=== PATIENT | female | born 1975 | race Caucasian/White ===

== ENCOUNTER 2020-05-23 07:51 | Outpatient (CLI) | payer BC, MEDICARE, SELFPAY ==
--- NOTE | 2020-05-23 08:08 | MM_ITS ---
WS: [id number] BILATERAL SCREENING DIGITAL MAMMOGRAM WITH CAD HISTORY: SCREENING COMPARISON: 12/06/2018 and 05/18/2017 Bilateral CC and MLO views submitted. Computer aided detection analyzed. Breast composition: The breasts are almost entirely fatty. No suspicious masses, microcalcifications or architectural distortion. MM/[place] [id number] IMPRESSION: BI-RADS: 1-Negative FOLLOW UP: 1 Year Follow-up
== END 2020-05-23 07:52 | disposition home or self-care (01) ==
LOC: RADSHAW 07:56
PROVIDERS: PCP Internal Medicine; Visit Provider Internal Medicine
DX: Z12.31 Encounter for screening mammogram for malignant neoplasm of breast (principal)
CPT/HCPCS: 77067

== ENCOUNTER 2020-05-24 10:53 | Outpatient (CLI) | payer BC, MEDICARE, SELFPAY ==
--- NOTE | 2020-05-24 11:00 | US_ITS ---
WS: [id number] ULTRASOUND PELVIS TECHNIQUE: Transvaginal. CLINICAL INFORMATION: POSTMENOPAUSAL BLEEDIN : No. COMPARISON: None. FINDINGS: Uterus Orientation: Anteverted. Size: 8.3 x 3.7 x 4.8 cm Masses: None. Cervix: Incidental nabothian cysts. Endometrium: Normal. Endometrium thickness: 0.24 cm. Adnexa: Neither ovary is visualized. No adnexal masses. Free fluid: None. Other findings: None. US/US transvaginal [id number] IMPRESSION: 1. Uterus and endometrium are normal in appearance. Endometrium measures 2.4 m m. 2. No free fluid in the cul-de-sac. 3. Neither ovary is visualized. No adnexal masses.
== END 2020-05-24 10:54 | disposition home or self-care (01) ==
LOC: US 10:53
PROVIDERS: PCP Internal Medicine; Visit Provider Internal Medicine
DX: N95.0 Postmenopausal bleeding (principal)
CPT/HCPCS: 76830

== ENCOUNTER → 2020-11-08 10:45 | Outpatient (BNVA) | payer BC, MEDICARE, SELFPAY | PROVIDERS: PCP Internal Medicine; Visit Provider Obstetrics & Gynecology | DX: Z12.4 Encounter for screening for malignant neoplasm of cervix (principal); N95.1 Menopausal and female climacteric states | CPT/HCPCS: 88175 ==

== ENCOUNTER 2020-11-27 08:16 | Outpatient (CLI) | payer BC, MEDICARE, SELFPAY ==
--- NOTE | 2020-11-27 08:27 | US_ITS ---
WS: [id number] ULTRASOUND SOFT TISSUES LEFT hip. HISTORY: SOFT TISSUE MASS COMPARISON: None available. TECHNIQUE: 2-D and color Doppler imaging is submitted. Ultrasound is directed by the patient in the area of concern over the lateral LEFT hip. There is no d iscernible mass. No fluid collections or bursitis identified. No area of increased vascularity. Lipom a may be isoechoic to the adjacent soft tissue and not visualized. US/US soft tissue/extremity [id number] IMPRESSION: No soft tissue abnormality in the area of interest.
== END 2020-11-27 08:17 | disposition home or self-care (01) ==
LOC: RAD 08:21
PROVIDERS: PCP Internal Medicine; Visit Provider Internal Medicine
DX: M79.9 Soft tissue disorder, unspecified (principal)
CPT/HCPCS: 76882

== ENCOUNTER 2021-07-09 09:40 | Outpatient (CLI) | payer BC, MEDICARE, SELFPAY ==
--- NOTE | 2021-07-09 09:47 | MM_ITS ---
WS: [id number] BILATERAL DIGITAL SCREENING MAMMOGRAPHY WITH CAD CLINICAL INFORMATION: SCREENING HISTORY: Screening mammogram. No current complaints. COMPARISON: November 23, 2019 TECHNIQUE: Bilateral CC and MLO views. FINDINGS: Scattered fibroglandular densities bilaterally. No suspicious focal mass, asymmetry, calcifications, or architectural distortion. No evidence of malignancy. A few tiny punctate calcifications. MM/[id number] IMPRESSION: BI-RADS: 2-Benign FOLLOW UP: 1 Year Follow-up Recommend return to annual screening mammography.
== END 2021-07-09 09:41 | disposition home or self-care (01) ==
PROVIDERS: PCP Internal Medicine; Visit Provider Internal Medicine
DX: Z12.31 Encounter for screening mammogram for malignant neoplasm of breast (principal)
CPT/HCPCS: 77067

== ENCOUNTER → 2021-10-12 15:16 | Outpatient (BNVA) | payer BC, MEDICARE, SELFPAY | PROVIDERS: PCP Internal Medicine; Visit Provider Nurse Practitioner | DX: R39.9 Unspecified symptoms and signs involving the genitourinary system (principal) | CPT/HCPCS: 81000 ==

== ENCOUNTER → 2021-11-22 13:51 | Outpatient (BNVA) | payer OTHER, MEDICARE, SELFPAY | PROVIDERS: PCP Internal Medicine; Visit Provider Nurse Practitioner | DX: R39.9 Unspecified symptoms and signs involving the genitourinary system (principal); N39.0 Urinary tract infection, site not specified | CPT/HCPCS: 81000; 87086 ==

== ENCOUNTER → 2022-01-05 13:24 | Outpatient (BNVA) | payer OTHER, MEDICARE, SELFPAY | PROVIDERS: PCP Internal Medicine; Visit Provider Podiatrist Foot & Ankle Surgery | DX: M79.671 Pain in right foot (principal) | CPT/HCPCS: 73630 ==

== ENCOUNTER 2022-06-03 11:20 | Outpatient (CLI) | payer OTHER, MEDICARE, SELFPAY ==
--- NOTE | 2022-06-03 11:35 | MR_ITS ---
WS: [id number] MRI LUMBAR SPINE NONCONTRAST TECHNIQUE: Sagittal T1, T2 and STIR imaging. Axial T1 and T2 imaging. CLINICAL INFORMATION: LUMBOSACRAL SPINE DEGENERATIVE DISC DZ W/RADICULOPATHY COMPARISON: None. FINDINGS: Mild lumbar curve. No acute compression. No high-grade spinal canal stenosis. Disc bulging worse at L 3-L4. Suspected prior hemilaminectomy L4-L5. L1-L2: Mild facet arthropathy. Spinal canal and foramen are patent. L2-L3: Tiny annular fissure. Spinal canal and foramen are patent. Mild facet arthropathy. L3-L4: Mild disc osteophytic ridging with a shallow central disc protrusion. Moderate central canal s tenosis. Impingement traversing LEFT greater than RIGHT L4 nerve roots. Moderate facet arthropathy. M ild LEFT and no significant RIGHT foraminal narrowing. L4-L5: Clumping of the cauda equina nerve roots compatible with arachnoiditis. Mild RIGHT greater daysi n LEFT bony foraminal narrowing. Slight narrowing of the RIGHT subarticular recess. Moderate facet ar thropathy. L5-S1: Disc osteophyte complex with endplate ridging. Slight contact of the far exiting RIGHT L5 nerv e root. LEFT foramen is patent. Slight encroachment traversing RIGHT S1 nerve root. Visualized pelvic bony structures: Normal. Paravertebral soft tissues: Normal. LEFT renal cyst measures 8 mm MR/MR lumbar spine wo con* [id number] IMPRESSION: 1. Mild lumbar curve. No acute compression. Suspected prior hemilaminectomy L4 -L5. 2. Disc osteophyte complex L3-L4 with moderate central canal stenosis. Impinge ment traversing LEFT greater than RIGHT L4 nerve roots. 3. LEFT foraminal protrusion with mild LEFT L3-L4 foraminal narrowing. 4. Clumping of the cauda equina nerve rootlets at L4-L5 compatible with arachn oiditis. Moderate L4-L5 bony foraminal narrowing with slight narrowing of the w rist particularly recess. 5. Disc bulge L5-S1 with osteophytic ridging. Slight encroachment traversing R IGHT S1 nerve root. 6. RIGHT eccentric disc osteophyte complex slightly contacts the far exiting R IGHT L5 nerve root laterally. 7. Tiny annular fissure L2-L3 spinal canal foramen are patent at this level.
== END 2022-06-03 11:21 | disposition home or self-care (01) ==
PROVIDERS: PCP Internal Medicine; Visit Provider Internal Medicine
DX: M51.17 Intervertebral disc disorders with radiculopathy, lumbosacral region (principal); M25.78 Osteophyte, vertebrae; M51.26 Other intervertebral disc displacement, lumbar region; M51.27 Other intervertebral disc displacement, lumbosacral region
CPT/HCPCS: 72148

== ENCOUNTER 2023-07-12 11:06 | Outpatient (CLI) | payer OTHER, MEDICARE, SELFPAY ==
--- NOTE | 2023-07-12 11:19 | MM_ITS ---
WS: [id number] BILATERAL 3D TOMOSYNTHESIS DIGITAL SCREENING MAMMOGRAPHY WITH CAD CLINICAL INFORMATION: SCREENING HISTORY: Screening mammogram. No current complaints. COMPARISON: 2020 TECHNIQUE: Bilateral CC and MLO views. FINDINGS: Scattered fibroglandular densities bilaterally. No suspicious focal mass, asymmetry, calcifications, or architectural distortion. No evidence of malignancy. A few tiny incidental punctate calcifications . IMPRESSION: MM/[place] [id number] BI-RADS: 2-Benign FOLLOW UP: 1 Year Follow-up Recommend return to annual screening mammography.
== END 2023-07-12 11:07 | disposition home or self-care (01) ==
LOC: RAD 11:11
PROVIDERS: PCP Internal Medicine; Visit Provider Internal Medicine
DX: Z12.31 Encounter for screening mammogram for malignant neoplasm of breast (principal)
CPT/HCPCS: 77063; 77067

== ENCOUNTER 2024-05-21 12:03 | Emergency (ER) | payer OTHER, MEDICARE, SELFPAY ==
[2024-05-21 12:04] VITALS: BP 129/77; PULSE 56; RESP 14; TEMP 36.4; O2SAT 99; BMI 36.9
--- NOTE | 2024-05-21 13:09 | CTR_ITS ---
PROCEDURE INFORMATION: Exam: CT Abdomen And Pelvis With Contrast Exam date and time: 05/21/2024 2:41 PM Age: 48 years old Clinical indication: Abdominal pain; Localized; Right upper quadrant (ruq); TECHNIQUE: Imaging protocol: Computed tomography of the abdomen and pelvis with contrast. Radiation optimization: All CT scans at this facility use at least one of these dose optimization techniques: automated exposure control; mA and/or kV adjustment per patient size (includes targeted exams where dose is matched to clinical indication); or iterative reconstruction. Contrast material: OMNI 350; Contrast volume: 100 ml; Contrast route: INTRAVENOUS (IV); COMPARISON: US transvaginal [id number] 05/24/2020 11:16 AM RADIATION DOSE METRICS: Total DLP (mGy-cm): 1062.41 FINDINGS: Liver: Normal. No mass. Gallbladder and biliary ducts: The gallbladder has been removed. Pancreas: Normal. No ductal dilation. Spleen: Normal. No splenomegaly. Adrenal glands: 2.4 cm nonspecific left adrenal gland lesion. Kidneys and ureters: There is a 13 mm cyst with benign features in the left kidney. Follow-up is not necessary. Stomach and bowel: There are gastric postoperative changes. Appendix: A normal appendix is identified. Intraperitoneal space: Unremarkable. No free air. No significant fluid collection. Vasculature: Unremarkable. No abdominal aortic aneurysm. Lymph nodes: Unremarkable. No enlarged lymph nodes. Urinary bladder: Unremarkable as visualized. Reproductive: Unremarkable as visualized. Bones/joints: There are degenerative changes in the visualized spine. Chronic defects are present through the L5 pars interarticularis. A broad-based disc osteophyte complex at the L3-L4 level appears to moderately narrow the canal. Multilevel lumbar posterior osteophytes contribute to bilateral neural foramina narrowing. Soft tissues: Tiny fat containing umbilical hernia. There is skin thickening about the umbilicus. CT/CT abdomen pelvis w con* [id number] IMPRESSION: There is a 2.4 cm nonspecific left adrenal gland lesion.Non-emergent adrenal CT is recommended. (Reference: Star) COMMENTS: Consistent with the [employer]'s Incidental Findings Committee white paper (J Am Rachael Radiol 2018): Any incidental renal lesion less than 1 cm or classified as too small to characterize, or any incidental cystic renal lesion characterized as simple-appearing, is likely benign. No follow-up imaging is recommended for these lesions per consensus recommendations based on imaging criteria. REFERENCES: Star SANTILLAN, et al. Management of Incidental Adrenal Masses: A White Paper of the ACR Incidental Findings Committee. J Am Rachael Radiol. 2017;14(8):5252-3771.
--- NOTE | 2024-05-21 13:11 | W.ED.ABDPA2 ---
HPI - Abdominal Pain General: Chief Complaint: Abdominal Pain Stated Complaint: Right side stomach pain Time Seen by Provider: 05/21/24 12:30 Source: patient Mode of arrival: ambulatory Limitations: no limitations History of Present Illness: 48-year-old female states she has been having right-sided abdominal pain since . States pains been intermittent in nature and sharp rates pain a 4 out of 10 currently denies any vomiting denies any diarrhea she has a history of a gastric bypass years ago she had no complications. Associated Symptoms: Denies chills, diarrhea, dysuria, fever(s), nausea and vomiting Review of Systems Const: Denies: fever(s), chills, body aches or change in appetite ENMT: Denies: throat pain or dental pain Card: Denies: chest pain Resp: Denies: dyspnea GI: Reports: abdominal pain; Denies: nausea, vomiting or diarrhea : Denies: dysuria Musc: Denies: neck pain or back pain Skin/Breast: Denies: rash Neuro: Denies: headache(s) PFSH ED PFSH: Medical History Obesity Gastroesophageal reflux disease Hyperlipidemia Type 2 diabetes mellitus Hypertension Surgical History History of shoulder surgery History of hand surgery History of section, low transverse (08/01/06) [place] [facility] [place] History of back surgery (~1996) Performed in [place], [place] History of cholecystectomy (~1995) Performed at [facility] in [place], [place] History of tonsillectomy and adenoidectomy (~1984) Age 10 Family History Mother Diabetes Hypercholesteremia Heart disease Hypertension Father Diabetes Social History Smoking and tobacco/nicotine status: never used tobacco/nicotine Alcohol intake: never Substance/Drug Use: never Physical Exam Const: COMMON NORMALS: no acute distress, patient oriented x3 and healthy appearing HENMT: COMMON NORMALS: normocephalic and atraumatic HEAD & SCALP: normocephalic and atraumatic Neck/C-Spine: COMMON NORMALS: full ROM and supple Chest: COMMONS NORMALS: normal inspection of the chest Resp: COMMON NORMALS: normal respiratory effort Cardio: COMMON NORMALS: regular rate, regular rhythm and No murmurs present (Cardio) RATE: regular rate RHYTHM: regular rhythm GI: COMMON NORMALS: Normal to inspection, nondistended, normoactive bowel sounds present, Soft to palpation and no masses PALPATION: Yes Soft to palpation OTHER: right sided tenderness Extremity: COMMON NORMALS: normal to inspection and full ROM Neuro: COMMON NORMALS: patient oriented x3, moves all extremities and no focal motor deficits Psych: COMMON NORMALS: mental status grossly normal, Normal thought process present and cooperative THOUGHT PROCESS: Normal thought process present Skin: COMMON NORMALS: no rashes or lesions noted and no wounds GENERAL SKIN EXAM: no rashes or lesions noted Course Vital Signs: Vital signs: Vital Signs Temperature 97.5 F L 05/21/24 12:04 Pulse Rate 65 05/21/24 14:12 Respiratory Rate 14 05/21/24 12:04 Blood Pressure 132/78 05/21/24 14:12 Pulse Oximetry 97 05/21/24 14:12 Oxygen Delivery Me thod Room Air 05/21/24 14:12 MDM - Abdominal Pain Medical Decision Making Patient presents with abdominal pain blood work imaging here shows nothing acute. I did inform her of the adrenal gland lesion and she is to follow-up with her PCP if further imaging she feels improved here she stable for discharge return if worsening. Medical Records I reviewed the patient's medical records. Lab Data I reviewed the patient's lab results. 05/21/24 13:09 05/21/24 13:09 Labs/Radiology: Radiology Impressions Abdomen/Pelvis CT 05/21/24 13:09 IMPRESSION: There is a 2.4 cm nonspecific left adrenal gland lesion.Non-emergent adrenal CT is recommended. (Reference: Star) COMMENTS: Consistent with the [employer]'s Incidental Findings Committee white paper (J Am Rachael Radiol 2018): Any incidental renal lesion less than 1 cm or classified as too small to characterize, or any incidental cystic renal lesion characterized as simple-appearing, is likely benign. No follow-up imaging is recommended for these lesions per consensus recommendations based on imaging criteria. REFERENCES: Star SANTILLAN, et al. Management of Incidental Adrenal Masses: A White Paper of the ACR Incidental Findings Committee. J Am Rachael Radiol. 2017;14(8):8536-5912. Laboratory Results WBC 5.92 10^3/uL (3.29-11.43) 05/21/24 13:09 RBC 4.71 10^6/uL (3.85-5.65) 05/21/24 13:09 Hgb 13.80 g/dL (11.27-16.99) 05/21/24 13:09 Hct 42.5 % (36-47) 05/21/24 13:09 MCV 90.2 fl (85-98) 05/21/24 13:09 MCH 29.3 pg (27-33) 05/21/24 13:09 MCHC 32.5 g/dL (30-55) 05/21/24 13:09 RDW 12.0 % (12.1-15.1) L 05/21/24 13:09 Plt Count 310 10^3/cmm (157-399) 05/21/24 13:09 MPV 8.5 fL (7.4-10.4) 05/21/24 13:09 Neut % (Auto) 61.6 % 05/21/24 13:09 Lymph % (Auto) 29.2 % 05/21/24 13:09 [place] % (Auto) 5.1 % 05/21/24 13:09 Eos % (Auto) 2.9 % 05/21/24 13:09 Baso % (Auto) 1.0 % 05/21/24 13:09 Neut # (Auto) 3.65 10^3/uL (1.8-7.7) 05/21/24 13:09 Lymph # (Auto) 1.7 10^3/uL (0.8-4.8) 05/21/24 13:09 [place] # (Auto) 0.3 10^3/uL (0.2-0.9) 05/21/24 13:09 Eos # (Auto) 0.2 10^3/uL (0.0-0.8) 05/21/24 13:09 Baso # (Auto) 0.1 10^3/uL (0.0-0.1) 05/21/24 13:09 Nucleated RBC % (auto) 0 % 05/21/24 13:09 Nucleated RBCs # 0.0 /100WBC 05/21/24 13:09 Sodium 142 mmol/L (136-145) 05/21/24 13:09 Potassium 4.0 mmol/L (3.5-5.1) 05/21/24 13:09 Chloride 103 mmol/L (98-107) 05/21/24 13:09 Carbon Dioxide 26 mmol/L (22-29) 05/21/24 13:09 Anion Gap 17.0 (5-19) 05/21/24 13:09 BUN 9 mg/dL (6-20) 05/21/24 13:09 Creatinine 0.5 mg/dL (0.5-0.9) 05/21/24 13:09 GFR Calculation 130.6 mL/min (90-130) H 05/21/24 13:09 Glucose 109 mg/dL (65-115) 05/21/24 13:09 Calculated Osmolality 293 mOsm/kg (285-295) 05/21/24 13:09 Calcium 9.1 mg/dL (8.5-10.5) 05/21/24 13:09 Total Bilirubin 0.4 mg/dL (0.15-1.2) 05/21/24 13:09 AST 27 U/L (0-32) 05/21/24 13:09 ALT 35 U/L (0-33) H 05/21/24 13:09 Alkaline Phosphatase 147 U/L (35-105) H 05/21/24 13:09 Total Protein 7.4 g/dL (6.6-8.7) 05/21/24 13:09 Albumin 4.3 g/dL (3.5-5.2) 05/21/24 13:09 Globulin 3.1 g/dL (1.3-4.6) 05/21/24 13:09 Lipase 23 U/L (13-60) 05/21/24 13:09 Urine Color Yellow (Yellow) 05/21/24 13:19 Urine Appearance Clear (CLEAR) 05/21/24 13:19 Urine pH 7 (5-7) 05/21/24 13:19 Ur Specific [place] 1.000 (1.005-1.030) L 05/21/24 13:19 Urine Protein Neg (Negative) 05/21/24 13:19 Urine Glucose (UA) Norm (Normal) 05/21/24 13:19 Urine Ketones Negative (Negative) 05/21/24 13:19 Urine Blood Neg (Negative) 05/21/24 13:19 Urine Nitrate Negative (Negative) 05/21/24 13:19 Urine Bilirubin Neg (Negative) 05/21/24 13:19 Urine Urobilinogen Norm mg/dL (Negative) 05/21/24 13:19 Ur Leukocyte Esterase Negative (Negative) 05/21/24 13:19 All radiology interpretation(s) finalized by discharge Discharge Plan Discharge Patient Disposition: Home Clinical Impression: Abdominal pain Qualifiers: Abdominal location: generalized Qualified Code(s): R10.84 - Generalized abdominal pain Condition: Stable Prescriptions: No Action aspirin [Tomás Chewable Aspirin] 81 mg tablet,chewable 81 mg PO DAILY Lantus U-100 Insulin 100 unit/mL solution 20 unit SUBCUT DAILY estradiol 0.5 mg tablet 0.5 mg PO DAILY 30 Days Qty: 30 12RF progesterone micronized 100 mg capsule 100 mg PO DAILY 30 Days Qty: 30 12RF insulin asp prt-insulin aspart [Novolog Mix 70-30 U-100 Insuln] 100 unit/mL (70-30) solution 32 unit SUBCUT TID metformin 1,000 mg tablet 1,000 mg PO BID lovastatin 10 mg tablet 10 mg PO DAILY Trulicity 0.75 mg/0.5 mL pen injector SUBCUT .WEEKLY TUMARIC capsule PO DAILY losartan 50 mg tablet 50 mg PO DAILY multivitamin Tablet 1 tab PO DAILY zinc 50 mg tablet 50 mg PO DAILY cholecalciferol (vitamin D3) 10 mcg (400 unit) capsule 10 mcg PO DAILY methocarbamol 750 mg tablet 750 mg PO Q8H PRN (Reason: muscle spasm) Qty: 30 0RF tizanidine 4 mg capsule 4 mg PO TID PRN (Reason: muscle spasticity) Qty: 10 0RF meloxicam 15 mg tablet See Rx Instructions .ROUTE .COMPLEX Qty: 30 2RF Hold Instructions: Patient No Longer Taking Dose Instruction: TAKE 1 TABLET BY MOUTH EVERY DAY FOR 30 DAYS Rx Instructions: TAKE 1 TABLET BY MOUTH EVERY DAY FOR 30 DAYS Discharge Orders: Discharge ED (Routine); Ordered 05/21/24 Ordered By: Karsten Garcia Referrals: Jane Flores MD [Primary Care Provider] - 4-7 days Discharge Diet: Advance as tolerated Discharge Activity: Resume usual activity Patient Instructions: Abdominal Pain (ED) Coding Level of Care Code 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
[2024-05-21 13:15] LABS: Basophils # 0.1 10^3/uL (0.0-0.1); Eosinophils # 0.2 10^3/uL (0.0-0.8); Eosinophils % 2.9 %; Hematocrit 42.5 % (36-47); Lymphocytes # 1.7 10^3/uL (0.8-4.8); Lymphocytes % 29.2 %; Mean Corpuscular HGB Conc 32.5 g/dL (30-55); Mean Corpuscular Hemoglobin 29.3 pg (27-33); Mean Corpuscular Volume 90.2 fl (85-98); Mean Platelet Volume 8.5 fL (7.4-10.4); Monocytes # 0.3 10^3/uL (0.2-0.9); Monocytes % 5.1 %; Neutrophils # 3.65 10^3/uL (1.8-7.7); Neutrophils % 61.6 %; Nucleated Red Blood Cells % 0 %; Platelet Count 310 10^3/cmm (157-399); Red Blood Count 4.71 10^6/uL (3.85-5.65); White Blood Count 5.92 10^3/uL (3.29-11.43)
[2024-05-21 13:36] LABS: Alanine Aminotransferase 35 U/L (0-33); Albumin Level 4.3 g/dL (3.5-5.2); Alkaline Phosphatase 147 U/L (35-105); Aspartate Amino Transferase 27 U/L (0-32); Blood Urea Nitrogen 9 mg/dL (6-20); Calcium 9.1 mg/dL (8.5-10.5); Carbon Dioxide 26 mmol/L (22-29); Chloride 103 mmol/L (98-107); Creatinine Clr Calc Pharmacy 163.8996; Globulin 3.1 g/dL (1.3-4.6); Glomerular Filtration Rate 130.6 mL/min (90-130); Glucose 109 mg/dL (65-115); Lipase 23 U/L (13-60); Osmolality Calculated 293 mOsm/kg (285-295); Sodium 142 mmol/L (136-145); Total Bilirubin 0.4 mg/dL (0.15-1.2); Total Protein 7.4 g/dL (6.6-8.7)
[2024-05-21] MEDS: methylPREDNISolone sod succ 40 mg/mL INJ IVP (14:11)
[2024-05-21] MEDS: diphenhydrAMINE 50 mg/mL SDV 1mL IVP (14:11)
[2024-05-21 14:12] VITALS: BP 132/78; PULSE 65; O2SAT 97
[2024-05-21 14:30] VITALS: BP 137/79; PULSE 67; O2SAT 97
[2024-05-21] MEDS: iohexol 350 mg/mL 500 mL Btl (per mL) IV (14:45)
[2024-05-21 15:10] LABS: Add Urine Microscopic? NO; Charge for UA Resulting for Rev
[2024-05-21 15:30] VITALS: BP 102/68; PULSE 63; O2SAT 93
[2024-05-21 15:37] LABS: Bilirubin Urine Neg (Negative); Blood Urine Neg (Negative); Glucose Urine UA Norm (Normal); Ketones Urine Negative (Negative); Leukocyte Esterase Urine Negative (Negative); Nitrate Urine Negative (Negative); Protein Urine Neg (Negative); Urine Appearance Clear (CLEAR); Urine Color Yellow (Yellow); Urobilinogen Urine Norm (Negative); pH Urine 7 (5-7)
== END 2024-05-21 15:58 | disposition home or self-care (01) ==
PROVIDERS: Emergency Provider Emergency Medicine; PCP Internal Medicine
DX: R10.84 Generalized abdominal pain (principal); Z79.82 Long term (current) use of aspirin; Z79.4 Long term (current) use of insulin; Z79.84 Long term (current) use of oral hypoglycemic drugs; Z79.85 Long-term (current) use of injectable non-insulin antidiabetic drugs; E78.5 Hyperlipidemia, unspecified; E11.9 Type 2 diabetes mellitus without complications; I10 Essential (primary) hypertension
CPT/HCPCS: 36415; 74177; 80053; 81003; 83690; 85025; 96374; 96375; 99285; J1200; J2919; Q9967

== ENCOUNTER 2024-09-25 14:38 | Outpatient (CLI) | payer OTHER, MEDICARE, SELFPAY ==
--- NOTE | 2024-09-25 14:43 | XR_ITS ---
WS: [id number] XR shoulder LT min 2V* [id number] REASON FOR EXAM: PAIN IN LEFT SHOULDER FINDINGS: Clavicle, scapula, and humerus are intact without fracture. The acromioclavicular joint is intact with mild narrowing and subchondral sclerosis. The appearance o f the AC joint is unchanged compared to 05/29/2019. Glenohumeral joint is intact. The joint space is not well demonstrated. There is mild osteophytosis o f the humeral head. The glenohumeral joint is unchanged compared to 05/29/2019. No significant subchondral sclerosis or cystic change in the greater biceps tuberosity. XR/XR shoulder LT min 2V* [id number] IMPRESSION: No acute abnormality. Mild osteoarthritis of the acromioclavicular joint. Osteoarthritis of the glenohumeral joint uncertain severity.
== END 2024-09-25 14:39 | disposition home or self-care (01) ==
LOC: RAD 14:41
PROVIDERS: PCP Internal Medicine; Visit Provider Internal Medicine
DX: M19.012 Primary osteoarthritis, left shoulder (principal)
CPT/HCPCS: 73030

== ENCOUNTER 2024-09-29 09:27 | Outpatient (CLI) | payer OTHER, MEDICARE, SELFPAY ==
--- NOTE | 2024-09-29 09:34 | MM_ITS ---
WS: [id number] BILATERAL SCREENING DIGITAL TOMOSYNTHESIS MAMMOGRAM WITH CAD HISTORY: SCREENING COMPARISON: 07/12/2023, 07/09/2021 Bilateral CC and MLO views with tomosynthesis and synthetic mammography submitted. Computer aided det ection analyzed. Breast composition: There are scattered areas of fibroglandular density. No suspicious masses, microc alcifications or architectural distortion. Scattered benign punctate calcifications in each breast. MM/MM scr BI tomosynthesis [id number] IMPRESSION: BI-RADS: 2 - Benign. FOLLOW UP: 1 Year Follow-up
== END 2024-09-29 09:28 | disposition home or self-care (01) ==
LOC: RAD 09:28
PROVIDERS: PCP Internal Medicine; Visit Provider Internal Medicine
DX: Z12.31 Encounter for screening mammogram for malignant neoplasm of breast (principal); R92.323 Mammographic fibroglandular density, bilateral breasts; R92.1 Mammographic calcification found on diagnostic imaging of breast
CPT/HCPCS: 77063; 77067

== ENCOUNTER 2025-06-12 18:02 | Emergency (ER) | payer OTHER, MEDICARE, SELFPAY ==
--- OUTSIDE RECORDS SUMMARY | 2025-03-14 23:59 | XMS_ITS | Continuity of Care Document ---
Author Name [facility] Address [address] [place] [address] Organization [facility] Care Team Providers Care Shells Inspector Name Role Phone [facility] Unavailable Unavailable Problems Problem Status Onset Date Problem Type Date of Resolution Comments Source Body mass index 40+ - severely obese (finding) Resolved Condition Added by Discern Rule PROB_ADD_BMI Severe obesity (disorder) Active Condition Added by Discern Rule PROB_ADD_BMI Morbid obesity (disorder) Diagnosis Body mass index 40+ - severely obese (finding) Diagnosis Type II diabetes mellitus without complication (disorder) Diagnosis Essential hypertension (disorder) Diagnosis Long-term current use of insulin (situation) Diagnosis Long-term current use of oral hypoglycemic medication Diagnosis Long-term current use of aspirin (situation) Diagnosis Joint pain (finding) Diagnosis Gastroesophageal reflux disease without esophagitis (disorder) Diagnosis Hyperlipidemia (disorder) Diagnosis Long-term current use of drug therapy (situation) Diagnosis Chronic gastritis (disorder) Diagnosis Gastric polyp (disorder) Diagnosis Acquired absence of organ Diagnosis Long-term current use of drug therapy (situation) Diagnosis Drug allergy (disorder) Diagnosis Allergy to penicillin (disorder) Diagnosis Allergy to substance (disorder) Diagnosis Not up-to-date with immunization (finding) Diagnosis Allergies, Adverse Reactions, Alerts Substance Category Reaction Severity Reaction type Status Date Reported Comments Source penicillin Assertion Moderate Drug allergy Active [facility] Latex Assertion Anaphylaxis Severe Allergy to substance Active [facility] iodine Assertion Anaphylaxis Severe Drug allergy Active [facility] Encounters Location Location Details Encounter Type Encounter Number Reason For Visit Attending Provider ADM Date DC Date Status Source [facility] Non-Admit [id number] Cesar Tom 03/14 12:25 :27 03/15 04:59 :59 [facility] Procedures Procedure Code Date Perfomer Comments Source [facility] Social History Social History Date Source No data available for this section 03/15/2025 [facility]
--- OUTSIDE RECORDS SUMMARY | 2025-06-12 18:05 | XMS_ITS | Encounter Summary ---
Author Organization [facility] Address [address] [place] [address] Care Team Providers Care Mask Former Name Role Phone Jane Flores MD Primary Care Provider [phone] Encounter Details Date Type Department Care Team (Latest Contact Info) Description 09/14/2003 Outpatient [facility] [address] [place] [address] Clay Bowers MD NO ADDRESS ON FILE Antepartum diabetes mellitus (Primary Dx); FAMILY HERED DIS-ANTEPART Social History Tobacco Use Types Packs/Day Years Used Date Smoking Tobacco: Never Assessed Comments Unknown Sex and Gender Information Value Date Recorded Sex Assigned at Not on file 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
--- OUTSIDE RECORDS SUMMARY | 2025-06-12 18:05 | XMS_ITS | Clinical Summary ---
Author Organization [employer] Address [address] [facility] Attn: [place] [address] Care Team Providers Care Weekday Babysitter Name Role Phone Jane Flores MD Primary Care Provider +1- [phone] Allergies Active Allergy Reactions Criticality Noted Date Comments Iodine Shortness of Breath/Wheezing High 018 Latex Shortness of Breath/Wheezing High 018 Penicillins Unknown 08/20/2018 Medications insulin degludec (TRESIBA) 200 unit/mL pen syringe Inject 35 Units by subcutaneous injection daily at bedtime. 8 Active lisinopriL (PRINIVIL) 10 mg tablet Take 10 mg by mouth daily. 8 Active insulin aspart (NOVOLOG FLEXPEN U-100 INSULIN SUBCUT) Inject 35 Units by subcutaneous injection 3-4 times a day . 8 Active omeprazole (PriLOSEC) 40 mg Capsule, Delayed Release(E.C.) Take 40 mg by mouth 2 times daily. 8 Active lovastatin (MEVACOR) 10 mg tablet Take 10 mg by mouth daily with supper. 8 Active metFORMIN (GLUCOPHAGE) 1,000 mg tablet Take 1,000 mg by mouth 2 times daily with meals. 8 Active aspirin (ECOTRIN EC) 81 mg Tablet, Delayed Release (E.C.) Take 81 mg by mouth daily. 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 Gender Identity Not on file Sexual Orientation Not on file Last Filed Vital Signs Vital Sign Reading Time Taken Comments Blood Pressure 142/74 08/20/2018 8:32 PM CDT Pulse - - Temperature 36.3 C (97.4 F) 08/20/2018 8:32 PM CDT Respiratory Rate 20 08/20/2018 8:32 PM CDT Oxygen Saturation - - Inhaled Oxygen Concentration - - Weight 140.3 kg (309 lb 3.2 oz) 08/20/2018 6:50 PM CDT Height 167.6 cm (5' 6 ) 08/20/2018 6:50 PM CDT Body Mass Index 49.91 08/20/2018 6:50 PM CDT Plan of Treatment Health Maintenance Due Date Last Done Comments DTAP/TDAP/TD VACCINES (1 - Tdap) 1992 HEPATITIS B VACCINES (1 of 3 - 19+ 3-dose series) 07/27 HPV/Cotest (21-29) 1994 CERVICAL CANCER SCREENING 2003 HPV/Cotest (30-65) 2003 PAP SMEAR 2003 BREAST CANCER SCREENING 2013 COLORECTAL SCREENING 2018 Colorectal Cancer Screening 2018 FIT-DNA Q 3 years 2018 FIT/FOBT Q 1 year 2018 Flex Sig/CT Colonography Q 5 years 2018 ZOSTER VACCINE (1 of 2) 2023 INFLUENZA VACCINE (#1) 2025 Care Teams Weekday Babysitter Relationship Specialty Start Date End Date Jane Flores MD [address] [place] [address] PCP - General Internal Medicine 08/20/18
--- OUTSIDE RECORDS SUMMARY | 2025-06-12 18:05 | XMS_ITS | Clinical Summary ---
Author Organization [facility] Address [address] [facility] [address] [place] [address] Phone Care Team Providers Care Central Office Technician Name Role Phone Jane Flores MD Primary Care Provider +1- [phone] Allergies Active Allergy Reactions Criticality Noted Date Comments Iodine Shortness of Breath/Wheezing High 018 Latex Shortness of Breath/Wheezing High 018 Penicillins Unknown 08/20/2018 Medications insulin aspart (NOVOLOG FLEXPEN U-100 INSULIN SUBCUT) Inject 35 Units by subcutaneous injection 3-4 times a day . Active insulin degludec (TRESIBA) 200 unit/mL pen syringe Inject 35 Units by subcutaneous injection daily at bedtime. Active metFORMIN (GLUCOPHAGE) 1,000 mg tablet Take 1,000 mg by mouth 2 times daily with meals. Active omeprazole (PriLOSEC) 40 mg Capsule, Delayed Release(E.C.) Take 40 mg by mouth 2 times daily. Active lovastatin (MEVACOR) 10 mg tablet Take 10 mg by mouth daily with supper. Active lisinopril (PRINIVIL) 10 mg tablet Take 10 mg by mouth daily. Active aspirin (ECOTRIN EC) 81 mg Tablet, Delayed Release (E.C.) Take 81 mg by mouth daily. 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 Gender Identity Not on file Sexual Orientation Not on file Last Filed Vital Signs Vital Sign Reading Time Taken Comments Blood Pressure 142/74 08/20/2018 8:32 PM CDT Pulse - - Temperature 36.3 C (97.4 F) 08/20/2018 8:32 PM CDT Respiratory Rate 20 08/20/2018 8:32 PM CDT Oxygen Saturation 97% 08/20/2018 8:32 PM CDT Inhaled Oxygen Concentration - - Weight 140.3 [...] of 2) 2023 INFLUENZA VACCINE (#1) 2025 Insurance MEDICARE PART A AND B [facility] Care Teams Central Office Technician Relationship Specialty Start Date End Date Jane Flores MD [address] [place] [address] PCP - General Internal Medicine 08/20/18
--- OUTSIDE RECORDS SUMMARY | 2025-06-12 18:05 | XMS_ITS | Encounter Summary ---
Author Organization [facility] Address [address] [place] [address] Care Team Providers Care Agency Service Coordinator Name Role Phone Jane Flores MD Primary Care Provider +1- [phone] Encounter Details Date Type Department Care Team (Latest Contact Info) Description 07/25/2003 Outpatient Historical [facility] Maternal and Medicine-[facility] [address] [place] [address] Clay Bowers MD NO ADDRESS ON FILE Antepartum diabetes mellitus (Primary Dx) Social History Tobacco Use Types Packs/Day Years Used Date Smoking Tobacco: Never Assessed Comments Unknown Sex and Gender Information Value Date Recorded Sex Assigned at Not on file 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
--- OUTSIDE RECORDS SUMMARY | 2025-06-12 18:05 | XMS_ITS | Encounter Summary ---
Author Organization [facility] Address [address] [place] [address] Care Team Providers Care Employee Operations Examiner Name Role Phone Jane Flores MD Primary Care Provider +1- [phone] Encounter Details Date Type Department Care Team (Latest Contact Info) Description 03/17/[address] 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
[2025-06-12 18:18] VITALS: BP 141/73; PULSE 79; RESP 18; TEMP 36.8; O2SAT 97; BMI 33.9
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
[2025-06-12 20:05] VITALS: BP 130/80; PULSE 68; O2SAT 99
[2025-06-12] MEDS: orphenadrine 30 mg/mL Inj 2 mL 60 MG IM (21:02)
[2025-06-12 21:24] VITALS: BP 113/81; PULSE 78; O2SAT 98
== END 2025-06-12 21:24 | disposition home or self-care (01) ==
PROVIDERS: Emergency Provider Physician Assistant; PCP Internal Medicine
DX: S39.012A Strain of muscle, fascia and tendon of lower back, initial encounter (principal); Z79.84 Long term (current) use of oral hypoglycemic drugs; E11.9 Type 2 diabetes mellitus without complications; I10 Essential (primary) hypertension; E78.5 Hyperlipidemia, unspecified; V89.2XXA Person injured in unspecified motor-vehicle accident, traffic, initial encounter
CPT/HCPCS: 70450; 72100; 72125; 72170; 73030; 96372; 99284; J1885; J2360

== ENCOUNTER 2025-09-16 19:36 | Emergency (ER) | payer OTHER, MEDICARE, SELFPAY ==
[2025-09-16 19:39] VITALS: BMI 33.2
--- OUTSIDE RECORDS SUMMARY | 2025-09-16 19:43 | XMS_ITS | Encounter Summary ---
Author Organization [facility] Address [address] [place] [address] Care Team Providers Care Bridge Ironworker Name Role Phone Jane Flores MD Primary Care Provider +1- [phone] Encounter Details Date Type Department Care Team (Latest Contact Info) Description 03/17/2006 Outpatient Historical [facility] Maternal and Medicine-Elizabethnikhil aguilar [address] [place] [id number] Hua Massey II, MD [address] [place] [id number] Antepartum Diabetes Mellitus (Primary Dx) Social History Tobacco Use Types Packs/Day Years Used Date Smoking Tobacco: Never Assessed Comments Unknown Sex and Gender Information Value Date Recorded Sex Assigned at Not on file 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
--- OUTSIDE RECORDS SUMMARY | 2025-09-16 19:43 | XMS_ITS | Clinical Summary ---
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
--- OUTSIDE RECORDS SUMMARY | 2025-09-16 19:43 | XMS_ITS | Encounter Summary ---
Author Organization [facility] Address [address] [place] [address] Care Team Providers Care Cotton Ball Machine Tender Name Role Phone Jane Flores MD Primary Care Provider +1- [phone] Encounter Details Date Type Department Care Team (Latest Contact Info) Description 07/25/2003 Outpatient Historical [facility] Maternal and Medicine-[facility] [address] [place] [address] Clay Bowers MD NO ADDRESS ON FILE Antepartum diabetes mellitus (Primary Dx) Social History Tobacco Use Types Packs/Day Years Used Date Smoking Tobacco: Never Assessed Comments Unknown Sex and Gender Information Value Date Recorded Sex Assigned at Not on file 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
--- OUTSIDE RECORDS SUMMARY | 2025-09-16 19:43 | XMS_ITS | Clinical Summary ---
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
[2025-09-16 19:46] VITALS: BP 138/78; PULSE 90; O2SAT 98
--- NOTE | 2025-09-16 20:07 | XRR_ITS ---
PROCEDURE INFORMATION: Exam: XR Right Hand Exam date and time: 09/16/2025 8:09 PM Age: 50 years old Clinical indication: Pain; Finger(s); Right; Additional info: Pain to base of RT 5th digit after impact injury TECHNIQUE: Imaging protocol: Radiologic exam of the right hand. Views: 1 or 2 views. COMPARISON: No relevant prior studies available. FINDINGS: Bones/joints: No evidence of acute fracture or dislocation. No erosive disease. No significant degenerative change. Soft tissues: Normal. XR/XR hand RT 2V [id number] IMPRESSION: No acute bony injury.
--- NOTE | 2025-09-16 20:39 | W.ED.EXTPRO ---
HPI - Extremity Problem General: Chief complaint: Extremity Injury, Upper Stated complaint: Rt hand Injury Time Seen by Provider: 09/16/25 19:39 History of Present Illness: Pt is a 50 yoF with a pmhx of DM and OA who presents to the ED with a R hand injury. 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 denies any numbness or weakness, no signficiant swelling. Associated symptoms: Deny chest pain, fever(s) or rash Related Data Home Medications ?Medication ?Instructions ?Recorded ?Confirmed TUMARIC PO DAILY 01/12/20 05/16/25 metformin 1,000 mg tablet 1,000 mg PO BID 01/12/20 05/16/25 insulin glargine 100 unit/mL 20 unit SUBCUT DAILY 08/12/20 05/16/25 subcutaneous solution (Lantus U-100 Insulin) losartan 50 mg tablet 50 mg PO DAILY 06/27/21 05/16/25 cholecalciferol (vitamin D3) 10 10 mcg PO DAILY 01/05/22 05/16/25 mcg (400 unit) capsule multivitamin 1 tab PO DAILY 01/05/22 05/16/25 zinc 50 mg tablet 50 mg PO DAILY 01/05/22 05/16/25 celecoxib 100 mg capsule (Celebrex) 100 mg PO BID 05/16/25 05/16/25 gabapentin 300 mg capsule 300 mg PO DAILY 05/16/25 05/16/25 semaglutide 2 mg/dose (8 mg/3 mL) mg SUBCUT 05/16/25 05/16/25 subcutaneous pen injector (Ozempic) simvastatin 5 mg tablet 5 mg PO DAILY 05/16/25 05/16/25 Previous Rx's ?Medication ?Instructions ?Recorded estradiol 0.5 mg tablet 0.5 mg PO DAILY 30 days #30 tabs 11/08/20 progesterone micronized 100 mg 100 mg PO DAILY 30 days #30 caps 11/08/20 capsule meloxicam 15 mg tablet See Rx Instructions .Route 10/15/22 Held on 10/09/23. .COMPLEX #30 tabs Instructions: Patient No Longer Taking methocarbamol 750 mg tablet 750 mg PO Q8H PRN muscle spasm #30 08/01/23 tabs ofloxacin 0.3 % ear drops 10 drp otic (ear) DAILY 7 days #5 05/16/25 mL celecoxib 100 mg capsule (Celebrex) 100 mg PO DAILY #14 caps 09/16/25 cyclobenzaprine 10 mg tablet 10 mg PO TID PRN muscle spasm #14 09/16/25 tabs Allergies Allergy/AdvReac Type Severity Reaction Status Date / Time iodine Allergy difficulty Verified 05/21/24 12:12 breathing Latex, Natural Rubber Allergy anaphylaxis Verified 05/21/24 12:12 Penicillins Allergy RASH Verified 05/21/24 12:12 Review of Systems General: Reports: 10 or more systems reviewed and unremarkable except in HPI and below Const: Denies: fever(s) or chills Eyes: Denies: change in vision or eye discharge Card: Denies: chest pain, palpitations or swelling of feet/ankles Resp: Denies: dyspnea or productive cough GI: Denies: abdominal pain or diarrhea Musc: Reports: extremity pain and extremity swelling; Denies: neck pain or back pain Skin/Breast: Denies: rash or jaundice Neuro: Denies: headache(s), numbness in extremities or weakness in extremities Mauricio/Lymph: Denies: easy bruising or easy bleeding PFSH ED PFSH: Medical History (Updated 09/16/25 @ 21:06 by Mark Kenny DO) Obesity Gastroesophageal reflux disease Hyperlipidemia Type 2 diabetes mellitus Hypertension Surgical History History of shoulder surgery History of hand surgery History of section, low transverse (08/01/06) Performed by Dr. Stroud at [facility] in [place], [place] History of back surgery (~1996) Performed in [place], [place] History of cholecystectomy (~1995) Performed at [facility] in [place], [place] History of tonsillectomy and adenoidectomy (~1984) Age 10 Family History Mother Diabetes Hypercholesteremia Heart disease Hypertension Father Diabetes Social History Smoking and tobacco/nicotine status: unknown if used tobacco/nicotine Alcohol intake: never Substance/Drug Use: never Physical Exam Narrative: EXAM NARRATIVE: mild diffuse tenderness along 5th metacarpal, no obvious deformity, nothing pinpoint, no erythema, bruising or warmth. no snuffbox ttp, no thenar or hypothenar ttp, full ROM of 5 digits, wrist and elbow joint, 2+ radial pulse. no trauma seen to other 3 extremities. Course Vital Signs: Vital signs: Vital Signs Pulse Rate 90 09/16/25 19:46 Blood Pressure 138/78 09/16/25 19:46 Pulse Oximetry 98 09/16/25 19:46 Oxygen Delivery Me thod Room Air 09/16/25 19:46 MDM - Extremity (Nontraumatic) Medical Decision Making -ddx: metacarpal fracture, dislocation, bony contusion, soft tissue injury, MSK strain -patient with mild minor mechanism of trauma, due to isolated pain and hx osteopenia, complexities of hand, XR ordered, negative for any obvious fracture or dislocation, low concern for snuffbox/scaphoid injury, patient improved with muscle relaxant and with a reassuring MSK and NV exam, dc'd with supportive care recommendations and muscle relaxants, strict return precautions given. Lab Data Radiology Impressions Hand X-Ray 09/16/25 20:07 IMPRESSION: No acute bony injury. All radiology interpretation(s) finalized by discharge Discharge Plan Discharge Patient Disposition: Home Clinical Impression: Contusion of bone, Hand pain, right Condition: Stable Prescriptions: New celecoxib [Celebrex] 100 mg capsule 100 mg PO DAILY Qty: 14 0RF cyclobenzaprine 10 mg tablet 10 mg PO TID PRN (Reason: muscle spasm) Qty: 14 0RF No Action Lantus U-100 Insulin 100 unit/mL solution 20 unit SUBCUT DAILY estradiol 0.5 mg tablet 0.5 mg PO DAILY 30 Days Qty: 30 12RF progesterone micronized 100 mg capsule 100 mg PO DAILY 30 Days Qty: 30 12RF metformin 1,000 mg tablet 1,000 mg PO BID TUMARIC capsule PO DAILY losartan 50 mg tablet 50 mg PO DAILY multivitamin Tablet 1 tab PO DAILY zinc 50 mg tablet 50 mg PO DAILY cholecalciferol (vitamin D3) 10 mcg (400 unit) capsule 10 mcg PO DAILY methocarbamol 750 mg tablet 750 mg PO Q8H PRN (Reason: muscle spasm) Qty: 30 0RF Ozempic 2 mg/dose (8 mg/3 mL) pen injector SUBCUT simvastatin 5 mg tablet 5 mg PO DAILY gabapentin 300 mg capsule 300 mg PO DAILY celecoxib [Celebrex] 100 mg capsule 100 mg PO BID ofloxacin 0.3 % drops 10 drp otic (ear) DAILY 7 Days Qty: 5 0RF meloxicam 15 mg tablet See Rx Instructions .ROUTE .COMPLEX Qty: 30 2RF Dose Instruction: TAKE 1 TABLET BY MOUTH EVERY DAY FOR 30 DAYS Rx Instructions: TAKE 1 TABLET BY MOUTH EVERY DAY FOR 30 DAYS Discharge Orders: Discharge ED (Routine); Ordered 09/16/25 Ordered By: Mark Kenny Referrals: Jane Flores MD [Primary Care Provider, Internal Medicine] Discharge Diet: Usual diet Discharge Activity: Resume usual activity Patient Instructions: Opioid Safety, Pain Management, Patient Portal & Erik Instructions Activity Restrictions/Additional Instructions: He was seen after your right hand injury, you were evaluated with an x-ray which found no fracture or dislocation and so you are deemed stable to be discharged. The treatment for this is rest and to gradually return to normal activity as your body allows. Over the next day, apply ice packs 20 minutes at a time every few hours to help with the swelling. In addition, use a stronger anti-inflammatory, Celebrex, 100 mg every 12 hours as needed for pain and anti-inflammatory effects, this is in place of ibuprofen so do not take that with this medication but you can still alternate this with Tylenol 650 mg every 6 hours as needed. In addition, for any spasms, use the muscle relaxant Flexeril, 10 mg every 8 hours as needed. If your pain continues mildly with activity, get a wrist splint from [facility] or other drugstores just use with activity but otherwise keep moving your hand to prevent it from getting stiff. Return to the ED with severe worsening of the pain, severe redness or swelling of the site, inability to move or feel your hand, any other emergent concerns. Print Language: Albanian Coding Level of Care Code ED Dermatology Nurse for Larry Coats
== END 2025-09-16 21:13 | disposition home or self-care (01) ==
PROVIDERS: Emergency Provider Student in an Organized Health Care Education/Training Program; PCP Internal Medicine
DX: S60.221A Contusion of right hand, initial encounter (principal); X58.XXXA Exposure to other specified factors, initial encounter
CPT/HCPCS: 73120; 99283; J9999